=== PATIENT | male | born 1985 | race Caucasian/White ===

== ENCOUNTER 2022-11-28 09:59 | Emergency (ER) | payer BC ==
[2022-11-28] MEDS ORDERED: Sodium Chloride 0.9% 1,000 ML IV ONE (10:41)
[2022-11-28] MEDS ORDERED: Sodium Chloride 0.9% 2.5 ML Syringe FLUSH PRN (10:41)
[2022-11-28] MEDS ORDERED: Sodium Chloride 0.9% 10 ML Syringe FLUSH PRN (10:41)
[2022-11-28 13:21] LABS: CARBON DIOXIDE,CO2 27.5 mmol/L (21.0-32.0); POTASSIUM,K 4.2 mmol/L (3.5-5.1)
== END 2022-11-28 13:46 | disposition home or self-care (01) ==
LOC: MW.ED 09:59
DX: R10.12 Left upper quadrant pain (principal)
CPT/HCPCS: 36415; 80053; 81003; 83690; 85025; 99284; J3490; J7030